=== PATIENT | female | born 1980 | race Caucasian/White ===

== ENCOUNTER 2025-01-27 14:19 | Outpatient (CLI) | payer OTHER, SELFPAY ==
--- NOTE | ~2025-01-27 | MM_ITS ---
EXAMINATION: MM screening lenin BI w yovanny HISTORY: Screening. TECHNIQUE: Craniocaudal and mediolateral oblique 3-D tomosynthesis images were obtained and synthetic 2-D images were generated. CAD analysis was submitted and interpreted. COMPARISON: None available. BREAST PARENCHYMAL COMPOSITION: Dense: The breast tissue is heterogeneously dense, which may obscure small masses. FINDINGS: No suspicious masses are seen. There are no suspicious calcifications. No unexplained architectural distortion is seen. There are no skin or nipple abnormalities identified. There is no adenopathy seen on the images submitted. IMPRESSION: No mammographic evidence to suggest malignancy is seen. The patient may return to screening mammography as per ACR guidelines. BI-RADS: 1 - Negative. Reviewed, dictated and finalized at location B. TEACHER
--- OUTSIDE RECORDS SUMMARY | 2025-01-27 14:26 | XMS_ITS | Clinical Summary ---
Author Organization [facility] Address [address] [place] [address] Care Team Providers Care Lead Python Developer Name Role Phone Sinan Bojorquez MD Primary Care Provider [phone] Source Comments [facility],non-owned Affiliates and Associated Physician Practices is amultiple site organization consisting of ambulatory clinics and hospital sitesin [place], [place], [place] and [place]. This disclosure is being madepursuant to the Care Everywhere program and may not contain all information available regarding this patient. Last updated 17.[facility] Active Problems Patient Care Coordination No te Formatting of this note migh t be different from the original. [facility] [place] 10[place]2016 No additional problems on file Social History Tobacco Use Types Packs/Day Years Used Date Smoking Tobacco: Never Assessed Comments No Sex and Gender Information Value Date Recorded Sex Assigned at Not on file Legal Sex Female 10:54 AM CDT Gender Identity Not on file Sexual Orientation Not on file Plan of Treatment Health Maintenance Due Date Last Done Comments COLOGUARD (AGES 45-75) - COL ON CA SCREENING 1979 COLON MONITORING 1979 COLONOSCOPY - COLON CA SCREENING 1979 CT COLONOGRAPHY - COLON CA SCREENING 1979 Colorectal Cancer Screening 1979 FIT - COLON CA SCREENING 1979 FLEX SIG - COLON CA SCREENING 1979 LIPID TESTING 1979 MAMMOGRAM 1979 HIV SCREENING 1994 HEPATITIS C SCREENING 01/03/1997 DTAP/TDAP/TD VACCINES (1 - Tdap) 1998 HEPATITIS B VACCINE (1 of 3 - 19+ 3-dose series) 1998 PAP SMEAR 01/09/2000 Cervical Cancer Screening 2009 PAP with HPV 2009 DEPRESSION SCREENING 03/04/2024 COVID-19 VACCINE (1 2024-2 6 season) 2024 INFLUENZA VACCINE (#1) 2024 ZOSTER VACCINE (1 of 2) 2029 HIB VACCINE Aged Out No longer eligi ble based on patient's age to complete this topic HPV VACCINE Aged Out No longer eligi ble based on patient's age to complete this topic MENINGOCOCCAL (Group B) VACC INE SHARED DECISION-MAKING Aged Out No longer eligibl e based on patient's age to complete this topic MENINGOCOCCAL GROUPS A/C/Y/W VACCINE Aged Out No longer eligible b ased on patient's age to complete this topic PNEUMOCOCCAL VACCINE Aged Out No long er eligible based on patient's age to complete this topic Insurance [address] Care Teams Lead Python Developer Relationship Specialty Start Date End Date Sinan Bojorquez MD [address] [place] [id number] PCP - General Internal Medicine 10/23/16
== END 2025-01-27 14:20 | disposition home or self-care (01) ==
LOC: CHSIMG 14:22
PROVIDERS: PCP Obstetrics & Gynecology; Visit Provider Obstetrics & Gynecology
DX: Z12.31 Encounter for screening mammogram for malignant neoplasm of breast (principal)
CPT/HCPCS: 77063; 77067